=== PATIENT | female | born 1990 | race Caucasian/White ===

== ENCOUNTER 2017-11-15 06:20 | Day surgery (SDC) | payer OTHER ==
[2017-11-13 17:00] LABS: Absolute Lymphocytes (CBC) 2.2 K/uL (0.7-4.9); Absolute Monocytes 0.7 K/uL (0.1-1.3); Absolute Neutrophil 8.9 K/uL (1.8-8.0); Basophils % 0.5 % (0-1.3); Eosinophils % 0.3 % (0-4.4); Hematocrit 38.8 % (36.0-45.0); Lymphocytes % 18.5 % (15.3-44.8); MCH 31.2 pg (27.0-35.0); MCV 93.2 fL (80-100); MPV 7.9 fL (7.6-11.3); Monocytes % 5.5 % (3.3-12.3); RBC Red Blood Cell Count 4.17 M/uL (3.86-4.86)
[2017-11-15] MEDS ORDERED: Ringers Lactate 1,000 ML IV ONE (06:47)
[2017-11-15 06:52] LABS: Specific Gravity >= 1.030 (1.005-1.030)
[2017-11-15] MEDS ORDERED: CEFAZOLIN/SWI 1gm 1 GM/10 ML SYR ONE (06:59)
[2017-11-15] MEDS ORDERED: PROPOFOL 200 MG/20 ML VIAL IV ONE (07:20)
[2017-11-15] MEDS ORDERED: MIDAZOLAM HCL 2 MG/2 ML INJ ONE (07:20)
[2017-11-15] MEDS ORDERED: LIDOCAINE 2% MPF 5 ML VIAL ONE (07:20)
[2017-11-15] MEDS ORDERED: FENTANYL CITR 100 MCG/2 ML ONE (07:22)
[2017-11-15] MEDS ORDERED: HYDROCODONE/APAP 5/325 MG TAB ONE (09:49)
--- NOTE | 2017-11-15 14:00 | OP ---
Date of Procedure: 11/15/2017 Surgeon: Ronen Atkins MD Preoperative Diagnosis: Thrombosed external, tender hemorrhoids. Postoperative Diagnosis: Thrombosed external, tender hemorrhoids. Procedure: Examination under anesthesia, anoscopy, proctoscopy, hemorrhoidectomy 2 bundles, left pos terolateral and right posterolateral hemorrhoidectomy. Anesthesia: General plus local. Indication: This is a case of a 27-year-old patient with a prolapsed, tender hemorrhoids causing aamir n and discomfort and bleeding. The patient wants them excised. The benefits, alternatives, and risk s of excision were fully explained to the patient, which include, but are not limited to infection, b leeding, damage to adjacent structures, anesthesia complication, anal stricture, anal incontinence, M I, and even . She also understands this may not relieve any symptoms. She might need more than one surgical intervention. She already tried many creams and sitz baths, change in her diet, changi ng the way to have bowel movement, has taken stool softeners and seems not to be helping her, that is why she wants them excised. Description Of Procedure: The patient was brought to the operating room, placed in supine position. Anesthesia was done without complication. The patient was placed in lithotomy position with proper protection. The perianal area was prepped and draped in a sterile fashion. Local anesthetic was don e for an anal block. After that, a rectal examination was done. We noticed a large left posterior l ateral and right posterolateral thrombosed prolapsed hemorrhoids. We did the rigid proctoscope all t he way up to 15 cm with no masses seen. This was done under direct visualization, advanced without a ssistance under direct visualization after insufflation. The scope was removed. We put an anoscope with a window in the side to help us to visualize the anal canal. The patient has somewhat too small hemorrhoids, but then she has too large hemorrhoids that are just prolapsed and large and with bluis h discoloration of the skin. At that moment, then we proceeded to each individually to be removed. We proceeded to open the anoderm in each side. Find the hemorrhoidal tissues, from the tanja s sphincter and transected that with a Harmonic scalpel. The same was done with the opposite lateral posterior hemorrhoid bundle. The area was irrigated. No bleeding. The anoderm was closed individu ally with 0 chromic and Surgicel placed over the area. No bleeding. The patient tolerated the proce dure well. Sponge count and instrument counts were correct. The patient sent to recovery in stable condition. KATY/ROSS Voice ID: [id number] Report ID: [id number]
--- NOTE | 2017-11-15 14:00 | DS ---
Date of Discharge: 11/15/2017 Diagnosis: Prolapsed external hemorrhoids. Procedure: exam under anesthesia, anoscopy, proctoscopy, hemorrhoidectomy 2 bundles. Disposition: Home. Activity: As tolerated. No heavy lifting. Followup: Follow up in my office in 1 week. Call for appointment on [phone]. Sitz baths 4 times a day and after every bowel movement. Medications: Include Vicodin q.4 hours p.r.n. pain, stool softeners. KATY/ROSS Voice ID: [id number] Report ID: [id number]
== END 2017-11-15 10:35 | disposition home or self-care (01) ==
LOC: OR 06:20
PROVIDERS: ATTEND Surgery
PROC: 06BY0ZC Excision of Hemorrhoidal Plexus, Open Approach (ICD-10-PCS; 2017-11-15)
PROC: 0DJD8ZZ Inspection of Lower Intestinal Tract, Via Natural or Artificial Opening Endoscopic (ICD-10-PCS; 2017-11-15)
PROC: 0DJD8ZZ Inspection of Lower Intestinal Tract, Via Natural or Artificial Opening Endoscopic (ICD-10-PCS; principal; 2017-11-15 07:30)
DX: K64.5 Perianal venous thrombosis (principal); R10.2 Pelvic and perineal pain; K64.8 Other hemorrhoids
CPT/HCPCS: 36415; 80048; 81025; 85025; 88304; J0690; J2250; J3010